=== PATIENT | male | born 1985 | race Caucasian/White ===

== ENCOUNTER 2019-10-22 19:30 | Emergency (ER) | payer BC ==
--- NOTE | 2019-10-22 20:19 | EDM.PDOC ---
<Madeleine Johns Saray - Last Filed: 10/22/19 23:10> ED HPI GENERAL MEDICAL PROBLEM - General Chief Complaint: Cardiovascular Problem Stated Complaint: RHB Time Seen by Provider: 10/22/19 19:54 Source of Information: Reports: Patient, RN Notes Reviewed History Limitations: Reports: No Limitations - History of Present Illness INITIAL COMMENTS - FREE TEXT/NARRATIVE: Patient is a 34-year-old male who presents to the ED for the evaluation of a rapid heartbeat and chest pain. Patient notes that he was sitting around the dinner table, visiting about hunting, and had 2 beers, when all of a sudden he started to notice his heart beating fast in his chest, he got diaphoretic, and had pain into his mid anterior chest. He did have some pain that shot to both shoulders, into his jaw and neck as well. Patient states that this lasted about 45 minutes to 1 hour. He notes that the symptoms relieve themselves about shortly after checking into the emergency department. Patient did have to walk home from his in-laws house, and states that the walk, which is only 4 blocks, made him feel winded when he got home. This is not normal for him. Patient denies any nausea or vomiting or diarrhea, any shortness of breath other than the shortness of breath with exertion he had after walking home. Patient does not have any sort of a history of anxiety. Patient does not think this is happened in the past. He notes that there was no increase in stress at the family gathering. He does not have a primary care provider, he is not on regular medications, he has had a prior shoulder surgery and appendix taken out. He notes that he drinks roughly 3 times per week, and has 5 or 6 beers each time. He used to smoke cigarettes, but stopped 3 years ago. He states that he smoked 1 pack/day for 5 years when he did smoke. He continues to chew tobacco. He denies any drug use. Patient did take Advil, and baby aspirin prior to arrival to the ER he notes that his dad's father has had multiple bypasses, and that his dad's uncle, which would be his great uncle had a heart attack in his 40s. Patient is pain-free at this time. - Related Data Allergies Allergy/AdvReac Type Severity Reaction Status Date / Time No Known Allergies Allergy Verified 10/22/19 19:48 Home Meds: Home Meds . [No Known Home Meds] 10/22/19 [History] Past Medical History - Past Surgical History GI Surgical History: Reports: Appendectomy Musculoskeletal Surgical History: Reports: Shoulder Surgery Social & Family History - Tobacco Use Smoking Status *Q: Current Every Day Smoker Years of Tobacco use: 20 Packs/Tins Daily: 1 - Caffeine Use Caffeine Use: Reports: Coffee, Soda - Recreational Drug Use Recreational Drug Use: No ED ROS GENERAL - Review of Systems Review Of Systems: See Below Constitutional: Reports: Diaphoresis. Denies: Fever, Chills Respiratory: Denies: Shortness of Breath, Cough Cardiovascular: Reports: Chest Pain (mid chest discomfort), Dyspnea on Exertion , Palpitations (feelings of rapid heart beat for 45min-1hr). Denies: Blood Pressure Problem, Lightheadedness GI/Abdominal: Denies: Abdominal Pain, Constipation, Nausea, Vomiting Musculoskeletal: Reports: Shoulder Pain (bilateral shoulder pain with episode) Neurological: Denies: Headache, Numbness, Tingling Psychiatric: Denies: Anxiety ED EXAM, GENERAL - Physical Exam Exam: See Below Exam Limited By: No Limitations General Appearance: Alert, No Apparent Distress, Obese Throat/Mouth: Normal Inspection, Normal Lips, Normal Teeth, Normal Gums, Normal Oropharynx, Normal Voice, No Airway Compromise Head: Atraumatic, Normocephalic Neck: Normal Inspection, Supple, Non-Tender, Full Range of Motion Respiratory/Chest: No Respiratory Distress, Lungs Clear, Normal Breath Sounds, No Accessory Muscle Use, Chest Non-Tender Cardiovascular: Normal Peripheral Pulses, No Edema, No Murmur, Tachycardia ( regular, but slightly tachy at 108 on exam) Peripheral Pulses: 3+: Radial (L), Radial (R) GI/Abdominal: Normal Bowel Sounds, Soft, Non-Tender, No Distention, No Mass Extremities: Normal Inspection, Normal Range of Motion, Normal Capillary Refill Neurological: Alert, Oriented, Normal Cognition, No Motor/Sensory Deficits Psychiatric: Normal Affect, Normal Mood Skin Exam: Warm, Dry, Intact, Normal Color, No Rash EKG INTERPRETATION EKG Date: 10/22/19 Time: 19:54 Rhythm: NSR Rate (Beats/Min): 90 [place]: LAD-Left [place] Deviation P-Wave: Present (incomplete RBBB) QRS: Normal ST-T: Normal QT: Normal Comparison: NA - No Prior EKG EKG Interpretation Comments: No acute ischemic change. 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 Incomplete RBBB. Reviewed with Dr. Alexander. Course - Vital Signs Last Recorded V/S: Last Vital Signs Temp 37.1 C 10/22/19 19:43 Pulse 101 H 10/22/19 19:43 Resp 20 10/22/19 19:43 BP 123/84 10/22/19 19:43 Pulse Ox 97 10/22/19 19:43 - Orders/Labs/Meds Orders: Active Orders 24 hr Category Date Time Status EKG Documentation Completion [RC] ASDIRECTED Care 10/22/19 19:52 Active Peripheral IV Care [RC] . DIRECTED Care 10/22/19 23:09 Active Sodium Chloride 0.9% [Saline Flush] Med 10/22/19 23:09 Active 10 ml FLUSH ASDIRECTED PRN Peripheral IV Insertion Adult [OM.PC] Stat Oth 10/22/19 23:09 Ordered EKG 12 Lead [EK] Stat Ther 10/22/19 19:52 Ordered Medication Orders Sodium Chloride (Saline Flush) 10 ml FLUSH ASDIRECTED PRN PRN Reason: Keep Vein Open Last Admin: 10/23/19 00:03 Dose: 10 ml Labs: Laboratory Tests 10/22/19 10/22/19 10/22/19 Range/Units 20:05 20:05 20:05 WBC 8.35 (4.23-9.07) K/mm3 RBC 5.46 (4.63-6.08) M/mm3 Hgb 17.3 (13.7-17.5) gm/dl Hct 48.5 (40.1-51.0) % MCV 88.8 (79.0-92.2) fl MCH 31.7 (25.7-32.2) pg MCHC 35.7 H (32.2-35.5) g/dl RDW Std Deviation 42.1 (35.1-43.9) fL Plt Count 184 (163-337) K/mm3 MPV 9.8 (9.4-12.3) fl Neut % (Auto) 61.8 (34.0-67.9) % Lymph % (Auto) 27.2 (21.8-53.1) % [place] % (Auto) 8.4 (5.3-12.2) % Eos % (Auto) 1.7 (0.8-7.0) Baso % (Auto) 0.2 (0.1-1.2) % Neut # (Auto) 5.16 (1.78-5.38) K/mm3 Lymph # (Auto) 2.27 (1.32-3.57) K/mm3 [place] # (Auto) 0.70 (0.30-0.82) K/mm3 Eos # (Auto) 0.14 (0.04-0.54) K/mm3 Baso # (Auto) 0.02 (0.01-0.08) K/mm3 Sodium 145 (136-145) mEq/L Potassium 4.0 (3.5-5.1) mEq/L Chloride 108 H (98-107) mEq/L Carbon Dioxide 25 (21-32) mEq/L Anion Gap 16.0 H (5-15) BUN 22 H (7-18) mg/dL Creatinine 1.0 (0.7-1.3) mg/dL Est Cr Clr Drug Dosing 123.30 mL/min Estimated GFR (MDRD) > 60 (>60) mL/min BUN/Creatinine Ratio 22.0 H (14-18) Glucose 104 (74-106) mg/dL Calcium 9.7 (8.5-10.1) mg/dL Magnesium 1.8 (1.8-2.4) mg/dl Total Bilirubin 0.4 (0.2-1.0) mg/dL AST 21 (15-37) U/L ALT 63 (16-63) U/L Alkaline Phosphatase 49 (46-116) U/L Troponin I 0.041 (0.00-0.056) ng/mL Total Protein 7.2 (6.4-8.2) g/dl Albumin 3.8 (3.4-5.0) g/dl Globulin 3.4 gm/dL Albumin/Globulin Ratio 1.1 (1-2) TSH 3rd Generation 1.309 (0.358-3.74) uIU/mL 10/22/19 Range/Units 22:05 WBC (4.23-9.07) K/mm3 RBC (4.63-6.08) M/mm3 Hgb (13.7-17.5) gm/dl Hct (40.1-51.0) % MCV (79.0-92.2) fl MCH (25.7-32.2) pg MCHC (32.2-35.5) g/dl RDW Std Deviation (35.1-43.9) fL Plt Count (163-337) K/mm3 MPV (9.4-12.3) fl Neut % (Auto) (34.0-67.9) % Lymph % (Auto) (21.8-53.1) % [place] % (Auto) (5.3-12.2) % Eos % (Auto) (0.8-7.0) Baso % (Auto) (0.1-1.2) % Neut # (Auto) (1.78-5.38) K/mm3 Lymph # (Auto) (1.32-3.57) K/mm3 [place] # (Auto) (0.30-0.82) K/mm3 Eos # (Auto) (0.04-0.54) K/mm3 Baso # (Auto) (0.01-0.08) K/mm3 Sodium (136-145) mEq/L Potassium (3.5-5.1) mEq/L Chloride (98-107) mEq/L Carbon Dioxide (21-32) mEq/L Anion Gap (5-15) BUN (7-18) mg/dL Creatinine (0.7-1.3) mg/dL Est Cr Clr Drug Dosing mL/min Estimated GFR (MDRD) (>60) mL/min BUN/Creatinine Ratio (14-18) Glucose (74-106) mg/dL Calcium (8.5-10.1) mg/dL Magnesium (1.8-2.4) mg/dl Total Bilirubin (0.2-1.0) mg/dL AST (15-37) U/L ALT (16-63) U/L Alkaline Phosphatase (46-116) U/L Troponin I 0.187 H* (0.00-0.056) ng/mL Total Protein (6.4-8.2) g/dl Albumin (3.4-5.0) g/dl Globulin gm/dL Albumin/Globulin Ratio (1-2) TSH 3rd Generation (0.358-3.74) uIU/mL Meds: Medications Generic Name Dose Route Start Last Admin Trade Name Najma PRN Reason Stop Dose Admin Sodium Chloride 10 ml 10/22/19 23:09 10/23/19 00:03 Saline Flush FLUSH 10 ml ASDIRECTED PRN Administration Keep Vein Open - Re-Assessments/Exams Free Text/Narrative Re-Assessment/Exam: 10/22/19 20:22 Patient presents to the ED for the evaluation of rapid heartbeat and mild chest discomfort. EKG was done at time of triage, and does not demonstrate any sort of acute ischemic change. Labs were drawn to include troponin, CBC, CMP, magnesium and a TSH level. If these show no abnormalities, will likely have him wear Holter monitor and follow-up with a provider of choice for possible cardiology consult. 10/22/19 21:28 Labs have resulted, and are essentially within normal limits. Troponin did demonstrate a mild bump at 0.041, TSH within normal limits. Will repeat the troponin at 4-hour time jai of onset, which he states was around 6 PM. A timed troponin was ordered at 2200. 10/22/19 22:39 Troponin is back and is elevated from previous at 0.187. I will consult [facility] for further recommendations. Did consult Dr. Bolanos, hospitalist hydration plant operator recommends observation in the ED to see if he develops any sort of chest pain or increasing palpitations. I have discussed the case with Dr. Alexander, and he believes that the patient very well could have had some sort of V-tach or SVT that we didn't catch here that could have possible caused strain on the heart and lead to the elevated troponin. I will discuss this with the patient and his . 10/22/19 23:10 At this time I did discuss results with the patient and his , and they are okay with observation in the ER, and possible hospital mission for longer observation in the morning. The patient's notes that she was in contact with the patient's mother, and states that his mother has history of SVT. I did talk with Dr. Alexander and charge nurse marylou, and they are also okay with keeping the patient in the ER but watching him overnight with tentative plans to admit in the morning. We will have the nurse place a IV, in case he needs any sort of IV medications. Care will be relinquished to Dr. Alexander. Departure - Departure Time of Disposition: 22:56 Disposition: Home, Self-Care 01 Condition: Fair Clinical Impression: Palpitations, Chest discomfort, Elevated troponin I level Referrals: Lia Malone NP [ED Midlevel Provider] - Forms: ED Department Discharge Additional Instructions: You were seen in the Emergency Room after experiencing rapid palpitations, chest pain, and sweatiness for 45 minutes. Because your symptoms had resolved prior to your arriving to the ER, the exact cause of your palpitations is not known. Workup in the ER included 2 sets of cardiac enzymes. Your first cardiac enzyme was normal, but your second cardiac enzyme was elevated, indicating that you have suffered some damage to your heart. This could be from the rapid heartbeat itself, or because you have some underlying cardiac issues. Admission to the hospital was offered, but declined. An appointment for you to see Lia Malone NP in our clinic on 2018 at 11:00 has been arranged. Because you have not been to the clinic before , however, you are to check in at 10:15. DO NOT BE LATE. If any other problems, please do not hesitate to return to the ER. Sepsis Event Note - Evaluation Sepsis Screening Result: No Definite Risk - Focused Exam Date Exam was Performed: 10/22/19 Time Exam was Performed: 23:10 <Ishaan Alexander - Last Filed: 10/23/19 08:05> Course - Re-Assessments/Exams Free Text/Narrative Re-Assessment/Exam: 10/23/19 07:52 The patient has been evaluated by Dr. Lucia here in the ED. The patient was offered admission, but after consideration, he has decided to go home instead. The plan they agreed on is for the patient to follow up in our clinic this coming week, where an outpatient Holter monitor and cardiac stress test can be arranged. 10/23/19 07:57 Notified by our bookmaker's clerk that she made an appointment for the patient to be seen by Lia Malone NP, on 10/28/2019 at 11:00, however, he is to check in at 10:15. Departure - Departure Time of Disposition: 07:55 Condition: Good
[2019-10-22] MEDS ORDERED: Sodium Chloride 0.9% 10 ML Syringe FLUSH PRN (23:09)
--- NOTE | 2019-10-23 08:02 | PCM.CONS ---
H&P History of Present Illness - General Date of Service: 10/23/19 Admit Problem/Dx: Palpitations - History of Present Illness Initial Comments - Free Text/Narative: 34-year-old patient who presented to the emergency room with palpitations. Yesterday evening he was sitting at the dinner table and drank 2 beers. Patient had a sudden onset of palpitations with sensation of a fast beating heart that lasted for 45 minutes to an hour. This did cause moderate chest pain that was sharp. Patient states the pain did radiate into his shoulders, jaw, and neck. The symptoms did resolve as he was checking into the emergency department. Patient states he has had episodes like this in the past. Generally they only last less than 1 minute. His mother does have a history of PSVT. In the emergency room his initial troponin was negative but a follow-up troponin increased to 0.187. Cardiology was consulted and they recommended observation in the emergency department to see if he develops any sort of chest pain or increasing palpitations. Patient was followed overnight in the emergency department and no episodes of chest pain or palpitations occurred. I was consulted in regards to possible observation for a longer period of time. EKG was noted to have normal sinus rhythm with a ventricular rate of 90 bpm. Left axis deviation with incomplete right bundle branch block. No ST-T wave changes. - Related Data Allergies/Adverse Reactions: Allergies Allergy/AdvReac Type Severity Reaction Status Date / Time No Known Allergies Allergy Verified 10/22/19 19:48 Home Medications: Home Meds . [No Known Home Meds] 10/22/19 [History] Past Medical History - Past Surgical History GI Surgical History: Reports: Appendectomy Musculoskeletal Surgical History: Reports: Shoulder Surgery Social & Family History - Tobacco Use Smoking Status *Q: Current Every Day Smoker Years of Tobacco use: 20 Packs/Tins Daily: 1 - Caffeine Use Caffeine Use: Reports: Coffee, Soda - Recreational Drug Use Recreational Drug Use: No H&P Review of Systems - Review of Systems: Review Of Systems: Comprehensive ROS is negative, except as noted in HPI. Exam - Exam Exam: See Below - Vital Signs Vital Signs: Last Vital Signs Temp 98.7 F 10/22/19 19:43 Pulse 101 H 10/22/19 19:43 Resp 20 10/22/19 19:43 BP 123/84 10/22/19 19:43 Pulse Ox 97 10/22/19 19:43 Weight: 280 lb - Exam Quality Assessment: No: Supplemental Oxygen General: Alert, Oriented, 4 HEENT: Conjunctiva Clear, EOMI, Hearing Intact, Mucosa Moist & [place] Neck: Supple, Trachea Midline, +2 Carotid Pulse wo Bruit, Full Range of Motion. No: Lymphadenopathy, Carotid Bruit Lungs: Clear to Auscultation, Normal Respiratory Effort Cardiovascular: Regular Rate, Regular Rhythm, Normal S1, Normal S2. No: Systolic Murmur GI/Abdominal Exam: Normal Bowel Sounds, Soft, Non-Tender, No Organomegaly, No Distention, No Abnormal Bruit, No Mass, Pelvis Stable Extremities: Normal Inspection, Normal Range of Motion, Non-Tender, No Pedal Edema, Normal Capillary Refill Peripheral Pulses: 2+: Posterior Tibial (L), Posterior Tibial (R), Dorsalis Pedis (L), Dorsalis Pedis (R) Skin: Warm, Dry, Intact Neurological: Cranial Nerves Intact Neuro Extensive - Mental Status: Alert, Oriented x3, Normal Mood/Affect, Normal Cognition Neuro Extensive - Motor, Sensory, Reflexes: CN II-XII Intact Psychiatric: Alert, Normal Affect, Normal Mood - Patient Data Lab Results Last 24 hrs: Laboratory Results - last 24 hr 10/22/19 10/22/19 10/22/19 Range/Units 20:05 20:05 20:05 WBC 8.35 (4.23-9.07) K/mm3 RBC 5.46 (4.63-6.08) M/mm3 Hgb 17.3 (13.7-17.5) gm/dl Hct 48.5 (40.1-51.0) % MCV 88.8 (79.0-92.2) fl MCH 31.7 (25.7-32.2) pg MCHC 35.7 H (32.2-35.5) g/dl RDW Std Deviation 42.1 (35.1-43.9) fL Plt Count 184 (163-337) K/mm3 MPV 9.8 (9.4-12.3) fl Neut % (Auto) 61.8 (34.0-67.9) % Lymph % (Auto) 27.2 (21.8-53.1) % [place] % (Auto) 8.4 (5.3-12.2) % Eos % (Auto) 1.7 (0.8-7.0) Baso % (Auto) 0.2 (0.1-1.2) % Neut # (Auto) 5.16 (1.78-5.38) K/mm3 Lymph # (Auto) 2.27 (1.32-3.57) K/mm3 [place] # (Auto) 0.70 (0.30-0.82) K/mm3 Eos # (Auto) 0.14 (0.04-0.54) K/mm3 Baso # (Auto) 0.02 (0.01-0.08) K/mm3 Sodium 145 (136-145) mEq/L Potassium 4.0 (3.5-5.1) mEq/L Chloride 108 H (98-107) mEq/L Carbon Dioxide 25 (21-32) mEq/L Anion Gap 16.0 H (5-15) BUN 22 H (7-18) mg/dL Creatinine 1.0 (0.7-1.3) mg/dL Est Cr Clr Drug Dosing 123.30 mL/min Estimated GFR (MDRD) > 60 (>60) mL/min BUN/Creatinine Ratio 22.0 H (14-18) Glucose 104 (74-106) mg/dL Calcium 9.7 (8.5-10.1) mg/dL Magnesium 1.8 (1.8-2.4) mg/dl Total Bilirubin 0.4 (0.2-1.0) mg/dL AST 21 (15-37) U/L ALT 63 (16-63) U/L Alkaline Phosphatase 49 (46-116) U/L Troponin I 0.041 (0.00-0.056) ng/mL Total Protein 7.2 (6.4-8.2) g/dl Albumin 3.8 (3.4-5.0) g/dl Globulin 3.4 gm/dL Albumin/Globulin Ratio 1.1 (1-2) TSH 3rd Generation 1.309 (0.358-3.74) uIU/mL 10/22/19 Range/Units 22:05 WBC (4.23-9.07) K/mm3 RBC (4.63-6.08) M/mm3 Hgb (13.7-17.5) gm/dl Hct (40.1-51.0) % MCV (79.0-92.2) fl MCH (25.7-32.2) pg MCHC (32.2-35.5) g/dl RDW Std Deviation (35.1-43.9) fL Plt Count (163-337) K/mm3 MPV (9.4-12.3) fl Neut % (Auto) (34.0-67.9) % Lymph % (Auto) (21.8-53.1) % [place] % (Auto) (5.3-12.2) % Eos % (Auto) (0.8-7.0) Baso % (Auto) (0.1-1.2) % Neut # (Auto) (1.78-5.38) K/mm3 Lymph # (Auto) (1.32-3.57) K/mm3 [place] # (Auto) (0.30-0.82) K/mm3 Eos # (Auto) (0.04-0.54) K/mm3 Baso # (Auto) (0.01-0.08) K/mm3 Sodium (136-145) mEq/L Potassium (3.5-5.1) mEq/L Chloride (98-107) mEq/L Carbon Dioxide (21-32) mEq/L Anion Gap (5-15) BUN (7-18) mg/dL Creatinine (0.7-1.3) mg/dL Est Cr Clr Drug Dosing mL/min Estimated GFR (MDRD) (>60) mL/min BUN/Creatinine Ratio (14-18) Glucose (74-106) mg/dL Calcium (8.5-10.1) mg/dL Magnesium (1.8-2.4) mg/dl Total Bilirubin (0.2-1.0) mg/dL AST (15-37) U/L ALT (16-63) U/L Alkaline Phosphatase (46-116) U/L Troponin I 0.187 H* (0.00-0.056) ng/mL Total Protein (6.4-8.2) g/dl Albumin (3.4-5.0) g/dl Globulin gm/dL Albumin/Globulin Ratio (1-2) TSH 3rd Generation (0.358-3.74) uIU/mL Result Diagrams: 10/22/19 20:05 10/22/19 20:05 Sepsis Event Note - Evaluation Sepsis Screening Result: No Definite Risk Consult PN Assessment/Plan Problem List Initiated/Reviewed/Updated: Yes Plan: Assessment * 45 minutes to an hour episode of palpitations associated with chest pain and an elevation in troponin. * Symptoms resolved once in the emergency room. * 12 hours of observation in the emergency room without symptoms or tachycardia on monitor. * Patient is requesting to go home and follow-up as an outpatient. * Elevated troponin is likely secondary to strain with ischemic changes on EKG. * Normal TSH * Mother with history of PSVT Plan discussed * I discussed the benefits of observation for the hospital for another 24 hours. He would benefit from monitoring of heart rate. He does have a family history of PSVT. Patient elected to go home. * He will make an appointment with PCP and I recommended he get a Holter monitor with possible event monitoring and even electrophysiology consult. He also would benefit from a stress test. Requesting Provider: brie Date Consult Requested: 10/23/19 Patient History Reviewed: Yes Notified Requestor: Yes Time Spent (in minutes): 40
== END 2019-10-23 08:28 | disposition home or self-care (01) ==
LOC: JD.ED 19:30
DX: R00.2 Palpitations (principal); F17.210 Nicotine dependence, cigarettes, uncomplicated
CPT/HCPCS: 36415; 80053; 83735; 84443; 84484; 85025; 93005; 93010; 99284; 99285-25

== ENCOUNTER 2020-09-19 16:31 | Emergency (ER) | payer BC ==
[2020-09-19] MEDS ORDERED: Diphtheria,Pertussis(Acell),Tetanus Vaccine 0.5 ML Syringe IM ONE (16:42)
--- NOTE | 2020-09-19 16:48 | EDM.PDOC ---
ED HPI GENERAL MEDICAL PROBLEM - General Chief Complaint: Lower Extremity Injury/Pain Stated Complaint: R FOOT INJURY Time Seen by Provider: 09/19/20 16:35 Source of Information: Reports: Patient History Limitations: Reports: No Limitations - History of Present Illness INITIAL COMMENTS - FREE TEXT/NARRATIVE: The patient presents with pain to his right foot. Around noon he stopped on a grilling utensil and it pocked through his shoe into his right foot. The utensil was dirty. He has more pain now when he walks. His tetanus is not up to date. Onset: Sudden Duration: Hour(s): Location: Reports: Lower Extremity, Right (foot) Quality: Reports: Sharp Severity: Moderate Improves with: Reports: None Worsens with: Reports: None Context: Reports: Trauma (steped on a grilling utensil) Associated Symptoms: Reports: No Other Symptoms Right Foot Pain Score (Numeric/FACES): 2 - Related Data Allergies Allergy/AdvReac Type Severity Reaction Status Date / Time No Known Allergies Allergy Verified 09/19/20 16:40 Home Meds: Home Meds . [No Known Home Meds] 10/22/19 [History] Past Medical History - Past Surgical History GI Surgical History: Reports: Appendectomy Musculoskeletal Surgical History: Reports: Shoulder Surgery Social & Family History - Caffeine Use Caffeine Use: Reports: Coffee, Soda Review of Systems - Review of Systems Review Of Systems: See Below Constitutional: Reports: No Symptoms Eyes: Reports: No Symptoms Ears: Reports: No Symptoms Nose: Reports: No Symptoms Mouth/Throat: Reports: No Symptoms Respiratory: Reports: No Symptoms Cardiovascular: Reports: No Symptoms GI/Abdominal: Reports: No Symptoms Genitourinary: Reports: No Symptoms Musculoskeletal: Reports: Other (Right foot pain and swelling) ED EXAM, GENERAL - Physical Exam Exam: See Below Exam Limited By: No Limitations General Appearance: Alert, No Apparent Distress Ears: Normal External Exam Nose: Normal Inspection Head: Atraumatic, Normocephalic Neck: Normal Inspection Respiratory/Chest: No Respiratory Distress Extremities: Other (Puncture wound to the planter aspect of the right foot near the 4th MTP. Pain upon palpation, edema and erythema) Course - Vital Signs Last Recorded V/S: Last Vital Signs Temp 98.1 F 09/19/20 16:39 Pulse 95 09/19/20 16:39 Resp 20 09/19/20 16:39 BP 133/86 09/19/20 16:39 Pulse Ox 100 09/19/20 16:39 - Orders/Labs/Meds Orders: Active Orders 24 hr Category Date Time Status Vaccines to be Administered [RC] PER UNIT ROUTINE Care 09/19/20 16:42 Ordered Diphth,Pertuss(Acell),Tet Vac [Adacel] Med 09/19/20 16:42 Once 0.5 ml IM .ONCE ONE - Re-Assessments/Exams Free Text/Narrative Re-Assessment/Exam: 09/19/20 16:46 I will up date his tetanus and get him on some keflex. Departure - Departure Time of Disposition: 16:50 Disposition: Home, Self-Care 01 Condition: Good Clinical Impression: Puncture wound of right foot Qualifiers: Encounter type: initial encounter Qualified Code(s): S91.331A - Puncture wound without foreign body, right foot, initial encounter - Discharge Information *PRESCRIPTION DRUG MONITORING PROGRAM REVIEWED*: Not Applicable *COPY OF PRESCRIPTION DRUG MONITORING REPORT IN PATIENT MARCIAL: Not Applicable Referrals: Lia Malone CLASS A [facility]EMAN [Primary Care Provider] - 1 Week Additional Instructions: Soak your foot in warm soapy water 2 times per day and apply antibiotic ointment after. Do this for 5 days. Take the keflex 4 times per day for 7 days. Look for any signs of infection such as redness, swelling, pain or drainage. Try to get some mole skin and cut a hole over the wound and that may help with the pain. Take tylenol or motrin for pain. Sepsis Event Note (ED) - Evaluation Sepsis Screening Result: No Definite Risk - Focused Exam Vital Signs: Vital Signs Temp Pulse Resp BP Pulse Ox 09/19/20 16:39 98.1 F 95 20 133/86 100 - My Orders Last 24 Hours: My Active Orders 09/19/20 16:42 Vaccines to be Administered [RC] PER UNIT ROUTINE Diphth,Pertuss(Acell),Tet Vac [Adacel] 0.5 ml IM .ONCE ONE - Assessment/Plan Last 24 Hours: My Active Orders 09/19/20 16:42 Vaccines to be Administered [RC] PER UNIT ROUTINE Diphth,Pertuss(Acell),Tet Vac [Adacel] 0.5 ml IM .ONCE ONE
== END 2020-09-19 16:55 | disposition home or self-care (01) ==
LOC: JD.ED 16:31
DX: S91.331A Puncture wound without foreign body, right foot, initial encounter (principal); Z23 Encounter for immunization; W26.8XXA Contact with other sharp object(s), not elsewhere classified, initial encounter
CPT/HCPCS: 90471; 90715; 99283

== ENCOUNTER 2022-09-14 07:26 | Day surgery (SDC) | payer BC ==
[2022-09-14] MEDS ORDERED: Lactated Ringers 1,000 ML IV SCH (07:45)
[2022-09-14] MEDS ORDERED: Propofol 200 MG/20 ML SDV ONE ×2 (08:16→09:02)
[2022-09-14] MEDS ORDERED: Lidocaine 1% 5 ML VIAL ONE (08:17)
[2022-09-14] MEDS ORDERED: Rocuronium 50 MG/5 ML Vial ONE (08:19)
[2022-09-14] MEDS ORDERED: Midazolam 1 MG/ML 2 ML SDV ONE (08:58)
[2022-09-14] MEDS ORDERED: fentaNYL 100 MCG/2 ML SDV ONE (08:58)
[2022-09-14] MEDS: Bupivacaine 0.5%/EPINEPHrine 1:200,000 50 ML MDV ONE ×2 (09:28→09:40)
[2022-09-14] MEDS: Lidocaine 1% with EPINEPHrine 1:100,000 10 ML MDV ONE ×2 (09:28→09:40)
[2022-09-14] MEDS ORDERED: Metoprolol Tartrate 5 MG/5 ML SDV ONE (09:32)
[2022-09-14] MEDS ORDERED: Ondansetron 4 MG/2 ML SDV ONE (09:32)
[2022-09-14] MEDS ORDERED: ceFAZolin 2 GM Vial ONE (09:32)
[2022-09-14] MEDS ORDERED: Sugammadex Sodium 200 MG/2 ML VIAL ONE (09:53)
[2022-09-14] MEDS ORDERED: Dexamethasone 4 MG/ML 5 ML MDV ONE (09:57)
[2022-09-14] MEDS ORDERED: oxyCODONE 5 MG Tab PO SCH (10:44)
== END 2022-09-14 11:45 | disposition home or self-care (01) ==
LOC: JD.SDS 07:26
PROVIDERS: ATTEND Surgery
DX: K43.9 Ventral hernia without obstruction or gangrene (principal); M62.08 Separation of muscle (nontraumatic), other site; K21.9 Gastro-esophageal reflux disease without esophagitis; I10 Essential (primary) hypertension; I47.1 Supraventricular tachycardia; E66.9 Obesity, unspecified; G47.33 Obstructive sleep apnea (adult) (pediatric); Z79.899 Other long term (current) drug therapy; Z98.890 Other specified postprocedural states; Z90.49 Acquired absence of other specified parts of digestive tract; Z87.891 Personal history of nicotine dependence; Z68.37 Body mass index [BMI] 37.0-37.9, adult
CPT/HCPCS: 49560; 49568; A9270; C1781; J0690; J1100; J2250; J2405; J2704; J3010; J3490; J7120

== ENCOUNTER 2024-03-11 22:42 | Emergency (ER) | payer BC ==
[2024-03-11] MEDS: Sodium Chloride 0.9% 10 ML Syringe FLUSH PRN (23:05)
[2024-03-11] MEDS: Diltiazem 25 MG/5 ML SDV IVPUSH ONE (23:12)
[2024-03-11 23:14] LABS: BASOPHILS ABSOLUTE AUTO 0.1 K/mm3 (0.0-0.2); BASOPHILS PERCENT AUTO 0.8 % (0.0-1.0); EOSINOPHILS ABSOLUTE AUTO 0.1 K/mm3 (0.0-0.4); EOSINOPHILS PERCENT AUTO 1.2 % (0.0-6.0); HEMATOCRIT 51.7 % (42.0-52.0); HEMOGLOBIN 18.5 gm/dl (14.0-18.0); IMMATURE GRAN ABSOLUTE AUTO 0.07 K/mm3 (0.00-0.05); IMMATURE GRAN PERCENT AUTO 0.8 % (0.0-0.4); LYMPHOCYTES PERCENT AUTO 33.5 % (24.0-44.0); MEAN CORPUSCULAR HEMOGLOBIN 31.5 pg (28.0-32.0); MEAN CORPUSCULAR HGB CONC 35.8 g/dl (32.0-36.0); MEAN CORPUSCULAR VOLUME 87.9 fl (83.0-99.0); MEAN PLATELET VOLUME 9.3 fl (9.4-12.4); MONOCYTES ABSOLUTE AUTO 0.8 K/mm3 (0.0-0.8); MONOCYTES PERCENT AUTO 9.2 % (0.0-8.0); NEUTROPHILS ABSOLUTE AUTO 4.9 K/mm3 (1.8-7.7); NEUTROPHILS PERCENT AUTO 54.5 % (41.0-71.0); PLATELET COUNT,PLT 208 K/mm3 (150-400); RED BLOOD CELL COUNT 5.88 M/mm3 (4.52-5.90); WHITE BLOOD CELL COUNT,WBC 8.95 K/mm3 (3.9-11.3)
[2024-03-11] MEDS: Diltiazem 125 MG in Sodium Chloride 0.9% 100 ML IV SCH (23:22)
[2024-03-11] MEDS: Sodium Chloride 0.9% 1,000 ML IV SCH (23:25)
[2024-03-11 23:45] LABS: A/G RATIO 1.1 (1-2); ALBUMIN 3.8 g/dl (3.4-5.0); ANION GAP 16.1 (5-15); BILIRUBIN TOTAL 0.9 mg/dL (0.2-1.0); BUN/CREATININE RATIO 18.2 (14-18); CALCIUM 10.8 mg/dL (8.5-10.1); CREATININE 1.1 mg/dL (0.7-1.3); EST CRCL DRUG DOSING (CG) 101.9 mL/min; MAGNESIUM 1.5 mg/dL (1.8-2.4); POTASSIUM,K 4.1 mEq/L (3.5-5.1); PROTEIN TOTAL,TP 7.2 g/dl (6.4-8.2); TSH 2.119 uIU/mL (0.358-3.74)
[2024-03-12] MEDS: Propofol 200 MG/20 ML SDV IVPUSH ONE (00:51)
== END 2024-03-12 02:16 | disposition home or self-care (01) ==
LOC: JD.ED 22:42
DX: I48.91 Unspecified atrial fibrillation (principal); I10 Essential (primary) hypertension; K21.9 Gastro-esophageal reflux disease without esophagitis; Z79.899 Other long term (current) drug therapy
CPT/HCPCS: 36415; 71045; 80053; 83735; 84443; 84484; 85025; 92960; 93005; 96365; 99152; 99285; J2704; J3490; J7030; 93010